=== PATIENT | female | born 1945 | race Caucasian/White ===

== ENCOUNTER 2019-05-04 08:31 | Day surgery (SDC) | payer BC ==
[2019-05-03 13:48] VITALS: BMI 21.9
[2019-05-04] MEDS ORDERED: Oxymetazoline HCl 0.05% ( 15 ML ) ONE (09:17)
[2019-05-04 09:37] LABS: Hemoglobin 10.9 g/dL (12.0-16.0)
[2019-05-04] MEDS ORDERED: Lidocaine 1% w/Epinephrine 1:100K 20 ML VIAL ONE (09:45)
[2019-05-04] MEDS ORDERED: EPINEPHrine 1 MG/ML AMP ONE (09:45)
[2019-05-04] MEDS ORDERED: Sodium Chloride 0.9% 0 ML ONE (09:54)
[2019-05-04 09:57] LABS: Anion Gap 13 mmol/L (10-20); BUN (Urea Nitrogen) 19 mg/dL (9.8-20.1); Calc. Creatinine Clearance 51 mL/min (70-130); Carbon Dioxide 27 mmol/L (23-31); Chloride 95 mmol/L (98-107); Estimated GFR-MDRD 56; Glucose 147 mg/dL (83-110); Potassium 4.7 mmol/L (3.5-5.1); Sodium 130 mmol/L (136-145)
[2019-05-04] MEDS ORDERED: Fentanyl 100 MCG/2 ML VIAL ONE (10:04)
[2019-05-04] MEDS ORDERED: traMADol HCl 50 MG TAB ONE (12:44)
[2019-05-04] MEDS ORDERED: Labetalol HCl 100 MG/20 ML VIAL ONE (14:01)
[2019-05-04] MEDS ORDERED: PROPOFOL 200 MG/20 ML VIAL ONE (14:01)
[2019-05-04] MEDS ORDERED: Lidocaine 1% PF 5 ML VIAL ONE (14:01)
[2019-05-04] MEDS ORDERED: Succinylcholine Chloride 20 MG/ML 10 ml SYRINGE FS ONE (14:01)
[2019-05-04] MEDS ORDERED: Dexamethasone 20 MG/5 ML VIAL ONE (14:01)
[2019-05-04] MEDS ORDERED: Ondansetron PF 4 MG/2 ML Vial ONE (14:01)
--- NOTE | 2019-05-05 11:37 | OP ---
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 PROCEDURE PERFORMED: 1. Bilateral nasal endoscopy with left maxillary sinusotomy with removal of tissue. 2. Bilateral nasal valve repair. PROCEDURE IN DETAIL: After consent was obtained, the patient was identified and brought to the OR and placed on the operating room table in supine position. General endotracheal anesthesia was obtained. The patient was positioned for surgery. The nose was prepped and draped, and the lateral nasal wall was infiltrated 1% lidocaine to 1:100,000 epinephrine. Residual uncinate was removed and copious amounts of purulent debris and solid material was evacuated from left maxillary sinus. Ultimately, the natural os of the sinus had to be posteriorly and inferiorly delivered the debris from the sinus and used pulse irrigation to mobilize the remainder of the debris and sent for culture. We then turned our attention to begin the bilateral nasal valve repair. The nose was infiltrated with 1% lidocaine and 1:100,000 epinephrine. With the Latera marking device, the topical anatomy was delineated using a marking pen. We then needle at 90 degrees to the septum and got down into the subcutaneous plane implantation device. Identical technique was used in contralateral side and perfect placement obtained. The patient was then awakened, extubated, taken to recovery room in stable condition prior to discharge home. Job ID: [id number]
[2019-05-09 19:08] LABS: Fungus Stain Final report (.)
== END 2019-05-04 13:02 | disposition home or self-care (01) ==
LOC: SDC 08:31
PROVIDERS: ATTEND Specialist
PROC: 0NB Head and Facial Bones, Excision (ICD-10-PCS; principal; 2019-05-04)
PROC: 099Q8ZZ Drainage of Right Maxillary Sinus, Via Natural or Artificial Opening Endoscopic (ICD-10-PCS; principal; 2019-05-04)
PROC: 099R8ZZ Drainage of Left Maxillary Sinus, Via Natural or Artificial Opening Endoscopic (ICD-10-PCS; principal; 2019-05-04)
DX: J32.0 Chronic maxillary sinusitis (principal); J34.89 Other specified disorders of nose and nasal sinuses; M26.09 Other specified anomalies of jaw size; G44.209 Tension-type headache, unspecified, not intractable; I10 Essential (primary) hypertension; E11.9 Type 2 diabetes mellitus without complications; K21.9 Gastro-esophageal reflux disease without esophagitis; M19.90 Unspecified osteoarthritis, unspecified site; Z79.4 Long term (current) use of insulin; Z79.899 Other long term (current) drug therapy; Z88.5 Allergy status to narcotic agent
CPT/HCPCS: 36415; 36416; 80048; 85014; 85018; 87070; 87077; 87102; 87186; 87205; 87206; 93005; 93010; J0171; J1100; J2001; J2405; J2704; J3010

== ENCOUNTER 2023-08-24 14:46 | Outpatient (CLI) | payer MEDICARE, OTHER | END 2023-08-24 14:47 | disposition home or self-care (01) | LOC: BICMAMMO 14:46 | PROVIDERS: ATTEND Obstetrics & Gynecology | DX: N64.4 Mastodynia (principal) | CPT/HCPCS: 76642; 77065; G0279 ==